=== PATIENT | female | born 1980 | race Caucasian/White ===

== ENCOUNTER 2021-01-02 19:06 | Emergency (ER) | payer BC ==
[~2021-01-02] VITALS: Ht 167.6 cm; Wt 63.5 kg
[2021-01-02 19:30] VITALS: BP_SYST 124
--- NOTE | 2021-01-02 19:30 | NUR ---
Patient to ER bed 1 to gown for evaluation. Side rails up.
--- NOTE | 2021-01-02 19:35 | NUR ---
PT CAME TO ER WITH PARTNER FOR COMPLAINTS OF DIZZYNESS SINCE 1600 TODAY. -HEADACHE, -N/V/D, -CP. PT CLAIMS SHE WAS FEEDING HER DOGS AND IT RANDOMLY STARTED. PT IS CLOSING HER EYES FOR COMFORT, BUT STILL COMPLAINING OF THE FEELING. HAS NO PAIN, A&OX4
--- NOTE | 2021-01-02 19:45 | NUR ---
DR. BUCK AT BEDSIDE TO ASSESS.
--- NOTE | 2021-01-02 19:52 | NUR ---
# 20 gauge angiocath placed to RAC. Use of asceptic technique. Opsite placed over site. Blood return noted. Blood for lab drawn from site. Flushed with 10 cc of normal saline. No evidence of infiltration noted. Patient tolerated well.
[2021-01-02 19:59] LABS: BASOPHILS % (AUTO) 0.6 % (0.0-2.0); EOSINOPHILS # (AUTO) 0.2 K/uL (0.0-0.4); EOSINOPHILS % (AUTO) 2.6 % (0.0-4.0); HEMATOCRIT 38.3 % (36-48); HEMOGLOBIN 13.1 g/dL (12.0-16.0); LYMPHOCYTES # (AUTO) 2.5 K/uL (1.0-5.5); LYMPHOCYTES % (AUTO) 34.2 % (20.5-51.5); MEAN CORPUSCULAR HEMOGLOBIN 32 pg (27-31); MEAN CORPUSCULAR HGB CONC 34 % (32-36); MEAN CORPUSCULAR VOLUME 93 fL (79.0-98.0); MONOCYTES # (AUTO) 0.8 K/uL (0.0-1.0); MONOCYTES % (AUTO) 10.5 % (1.7-9.3); NEUTROPHILS # (AUTO) 3.8 K/uL (1.8-7.7); NEUTROPHILS % (AUTO) 52.1 % (40.0-70.0); PLATELET COUNT (AUTO) 259 K/uL (130-430); RED CELL DISTRIBUTION WIDTH 12.7 % (9.0-15.0); WHITE BLOOD COUNT (AUTO) 7.4 K/uL (4.8-10.8)
[2021-01-02] MEDS ORDERED: METOCLOPRAMIDE HCL 10 MG/2 ML VIAL IVP ONE (20:00)
[2021-01-02] MEDS ORDERED: MECLIZINE HCL 25 MG TABLET (ANITVERT) PO ONE (20:00)
--- NOTE | 2021-01-02 20:00 | NUR ---
Patient transported to radiology via WHEELCHAIR, accompanied by TECH.
--- NOTE | 2021-01-02 20:15 | NUR ---
PT BACK TO ER BED 1.
[2021-01-02 20:25] LABS: CALCIUM 8.8 mg/dL (8.4-11.0); CREATININE 0.91 mg/dL (0.55-1.30); POTASSIUM 4.1 mmol/L (3.5-5.1)
[2021-01-02 20:31] LABS: ALBUMIN 3.5 g/dL (3.4-4.8); PROTHROMBIN TIME 10.4 SECS (9.5-12.5); TOTAL BILIRUBIN 0.5 mg/dL (0.0-1.0)
[2021-01-02] MEDS ORDERED: MECL-108 PO (20:50)
--- NOTE | 2021-01-02 20:54 | NUR ---
Patient given written and verbal discharge instructions and verbalizes understanding. DR. HEBER BEVERLY MD discussed with patient the results and treatment provided. Patient in stable condition. ID arm band removed. IV catheter removed intact and dressing applied, no active bleeding. Rx SENT PER DR. BUCK. Patient educated on pain management and to follow up with PMD. Pain Scale 0/10. Opportunity for questions provided and answered. Medication side effect fact sheet provided.
[2021-01-02 20:55] VITALS: BP_SYST 124
== END 2021-01-02 20:55 | disposition home or self-care (01) ==
LOC: SED 19:06
DX: R42 Dizziness and giddiness (principal); R11.0 Nausea; Z79.899 Other long term (current) drug therapy
CPT/HCPCS: 36415; 70450; 71045; 76376; 80053; 81025; 84484; 85025; 85610; 85730; 93005; 96374; 99285; J2765; J8597